=== PATIENT | male | born 1965 | race Caucasian/White ===

== ENCOUNTER → 2018-05-08 | Outpatient (CLI) | payer OTHER ==
[~2018-05-08] MED LIST: ARTIFICIAL TEAR15 M1 OP; ASPIRIN EC81 M1 PO; CHANTIX1 MG; COLACE 100 MG100 MG PO; FLEXERIL PO; LIORESAL 10 MG10 MG PO; NOHOMEMEDICATIONS; PERCOCET 7.5-31 EACH PO; PREDNISONE 20 M20 M1 PO; PROTONIX40 MG PO; VALACYCLOVIR500 MG PO; VICODIN 5-5001 EACH PO
--- NOTE | 2018-05-08 17:02 | EXE ---
[place] [address] STRESS ECHOCARDIOGRAM Name: MARILINNASIM Parul Room: [facility]#: [id number] Admission: 05/08/18 Attend Phys: Julius Strange MD Discharge: Date of : 63 Date of Service: 05/08/18 1702 Report #: [id number] THIS REPORT FOR: //name// APPROVED REPORT Study performed: 05/08/2018 15:48:42 Exam: Stress Echocardiogram Indication: Chest pain Patient Location: Out-Patient Stress Nurse: Marta Mane RN Supervising Physician: Shady Viveros MD Ht: 5 ft 9 in HR: 69 bpm BP: 127/83 mmHg Medical History Cardiac Risk Factors: FHX of CAD, Tobacco History (Current/Recent) Procedure The patient underwent an Exercise Stress Test using the Ronald Protocol. Blood pressure, heart rate, and EKG were monitored. An Echocardiogram was performed by plastic surgery technician in four stages in quad fashion. At peak stress, four selected images were obtained and placed side by side with resting images for comparison. Stress Test Details Stress Test: Exercise stress testing was performed using a Ronald protocol. HR Resting HR: 69 bpm Max Heart Rate (APMHR): 167 bpm Max HR Achieved: 154 bpm Target HR (85% APMHR): 141 bpm % of APMHR: 92 Recovery HR: 85 bpm HR response to stress: Normal HR response to stress BP Resting BP: 127/83 mmHg Max BP: 240/71 mmHg Recovery BP: 162/72 mmHg BP response to stress: Normal blood pressure response to stress. ECG Resting ECG: Sinus Rhythm, [place] [address] STRESS ECHOCARDIOGRAM Name: NASIM GASTON Room: [facility]#: [id number] Admission: 05/08/18 Attend Phys: Julius Strange MD Discharge: Date of : 63 Date of Service: 05/08/18 1702 Report #: [id number] Stress ECG: Sinus Tachycardia ST Change: None Arrhythmia: None Recovery ECG: Sinus Rhythm Recovery ST Change: None Recovery Arrhythmia: None Clinical Reason for Termination: Completed protocol Exercise duration: 11 min 01 sec Highest Stage Achieved: Stage 4: 4.2 mph at 16% grade. Exercise capacity: 13.40 METs The patient tolerated standard Ronald protocol exercise without significant cardiac symptoms. The patient exhibited good exercise tolerance. Stress ECG Conclusion Baseline 12-lead EKG showed sinus rhythm with no significant ST or T wave abnormality. EKGs obtained during and post exercise showed sinus rhythm and sinus tachycardia with no significant ST or T wave changes when compared baseline. There were no stress-induced arrhythmias. Pre-Stress Echo The resting Echocardiogram showed normal left ventricular contractility with an estimated Ejection Fraction of about 60-65%. Post-Stress Echo The stress Echocardiogram showed normal left ventricular contractility with an estimated Ejection Fraction of about >70%. Clinical No clinical or ECG evidence for ischemia. Conclusion Clinical Response: Non-ischemic Exercise Capacity: Average Stress ECG Response: Non-ischemic Stress Echo Images: [place] [address] STRESS ECHOCARDIOGRAM Name: NASIM GASTON Room: [facility]#: [id number] Admission: 05/08/18 Attend Phys: Julius Strange MD Discharge: Date of : 63 Date of Service: 05/08/181701 Report #: [id number] Other Information Study Quality: Good <ELECTRONICALLY SIGNED> By: Shady Viveros MD, FACC 05/08/181701 01 01 Shady Viveros MD, FACC /INF
== END ==
LOC: M.CRD 14:30
DX: R07.1 Chest pain on breathing (principal); Z87.891 Personal history of nicotine dependence

== ENCOUNTER 2019-03-26 05:45 | Emergency (ER) | payer OTHER ==
[~2019-03-26] VITALS: Ht 175.3 cm; Wt 72.6 kg
[2019-03-26 05:54] VITALS: BP 126/91
[2019-03-26] MEDS ORDERED: PREDNISONE 20 M20 M1 PO (06:26)
[2019-03-26] MEDS ORDERED: NORCO 5-325 TA1 EAC1 PO (06:26)
== END 2019-03-26 06:34 | disposition home or self-care (01) ==
LOC: M.ERS 05:45
DX: M79.602 Pain in left arm (principal); F17.210 Nicotine dependence, cigarettes, uncomplicated; Z88.1 Allergy status to other antibiotic agents; Z88.8 Allergy status to other drugs, medicaments and biological substances